=== PATIENT | male | born 1935 | race Caucasian/White ===

== ENCOUNTER 2017-05-04 10:31 | Observation (INO) | payer MEDICARE, BC ==
[~2017-05-04] VITALS: Ht 172.7 cm; Wt 79.7 kg
[~2017-05-04 10:31] MED LIST: ALEVE 220MG220 MG PO; ANDROGEL1% TP; ASPIRIN 32325 MG/TAB PO; BIO-TN500 MCG PO; CENTRUM SILVER1 TA1 PO; CEPHALEXIN500 M1 PO; COZAAR 25MG25 MG/TAB PO; DARVOCET N 101 UDTAB PO; FERROUS SULFATE65 MG PO; FISH OIL1 IU PO; FISH OIL1000 MG PO; FOLIC ACID 40400 MCG PO; HCTZ 25MG TAB25 MG PO; HEADACHE RELIE1 EACH PO; HYDROCHLOR50 MG PO; IRON325 M1 PO; LASIX 20MG TABL20 MG PO; LASIX 40MG TABL40 MG PO; LEADER EYE ITCH5 ML OP; LIDODERM 5% PATC1 EA TP; LIPITOR 10MG10 MG PO; LIQUID MAGNESI400 MG PO; LISINOPRIL10 MG PO; LOPRESSOR 550 MG/TAB PO; MAG-OX 400400 MG/TAB PO; METOPROLOL SUCC50 M1 PO; MULTAQ400 MG PO; MULTIPLE VITAMI1 CAP PO; NEXIUM 40MG40 MG PO; NORVASC 5MG5 MG/TAB PO; NORVASC2.5 MG PO; OSTEO-BI-FLEX 21 TAB PO; PRINIVIL10 MG PO; PRINIVIL20 MG PO; STRESS FORMULA PO; SUPER B COMPLEX1 TA2 PO; SYSTANE 0.4%-0.1 SOL OP; TAMBOCOR 1100 MG/TAB PO; ULTRAM 50MG TAB50 MG PO; VITAMIN C BUFF500 MG PO; VITAMIN D31000 IU PO; VITAMIN D5000 IU PO; XARELTO10 MG PO; ZOFRAN 4MG T4 MG/TAB PO
[2017-05-04] MEDS ORDERED: NORVASC2.5 MG PO (13:09)
[2017-05-04 13:12] VITALS: BP 135/60; PULSE 69; TEMP 97.6
[2017-05-04] MEDS ORDERED: LOPRESSOR 550 MG/TAB PO (13:37)
[2017-05-04 14:43] LABS: ADJUSTED CALCIUM 8.9 mg/dL (8.4-10.2); ALBUMIN 4.1 gm/dL (3.5-5.0); BILIRUBIN,TOTAL 1.1 mg/dL (0.0-1.0); C-REACTIVE PROTEIN 2.5 mg/dL (0.0-0.9); CREATININE, serum 1.19 mg/dL (0.66-1.25); POTASSIUM 3.9 mmol/L (3.4-5.0); TOTAL PROTEIN 7.4 gm/dL (6.4-8.2)
[2017-05-04 14:52] LABS: TROPONIN-I 0.023 ng/mL (0.000-0.034)
[2017-05-04 15:48] LABS: MAGNESIUM 1.7 mg/dL (1.6-2.3)
[2017-05-04 15:58] VITALS: BP 165/76; PULSE 83; TEMP 97.8
[2017-05-04 17:54] LABS: PH 6 (5-8); SQUAMOUS EPITHELIAL None Seen /hpf; URINE APPEARANCE Clear; URINE BACTERIA None Seen /hpf; URINE BILIRUBIN Negative (NEGATIVE); URINE BLOOD Negative (NEGATIVE); URINE COLOR Straw; URINE GLUCOSE Negative (NEGATIVE); URINE KETONE Negative (NEGATIVE); URINE RBC 0-2 /hpf; URINE UROBILINOGEN Negative (NEGATIVE); URINE WBC 0-2 /hpf
[2017-05-04 18:50] LABS: BASO # 0.1 (0.0-0.2); BASO % 0.6 % (0.0-2.0); EOS # 0.1 (0.0-0.7); EOS % 0.7 % (0-4.0); GRAN # 8.6 (1.4-6.5); GRAN % 80.3 % (42.2-75.2); HEMATOCRIT 41.4 % (42.0-52.0); HEMOGLOBIN 14.5 g/dl (13.5-18.0); LYMPH # 1.1 (1.2-3.4); MEAN CELL VOLUME 98 fl (80.0-100.0); MEAN CORPUSCULAR HEMOGLOBIN 34 pg (27.0-31.0); MEAN CORPUSCULAR HGB CONC 35 g/dl (33.0-37.0); MEAN PLATELET VOLUME 11.4 fl (7.4-10.4); MONO # 0.9 (0.1-0.6); RED BLOOD COUNT 4.21 M/mm3 (4.20-5.60); REDCELL DISTRIBUTION WIDTH-CV 12.9 % (11.5-14.5); WHITE BLOOD COUNT 10.7 K/mm3 (4.8-10.8)
[2017-05-04 18:58] LABS: PLATELET COUNT 216 K/mm3 (130-400)
[2017-05-04 20:16] VITALS: BP 137/69; PULSE 64; TEMP 97.6
[2017-05-04 23:28] VITALS: BP 165/70; PULSE 60; TEMP 98.3
[2017-05-05 03:24] VITALS: BP 176/87; PULSE 60; TEMP 98.2
[2017-05-05 07:15] LABS: BASO # 0.1 (0.0-0.2); BASO % 0.7 % (0.0-2.0); EOS # 0.1 (0.0-0.7); EOS % 1.2 % (0-4.0); GRAN # 5.4 (1.4-6.5); HEMATOCRIT 37.3 % (42.0-52.0); HEMOGLOBIN 12.8 g/dl (13.5-18.0); LYMPH # 0.8 (1.2-3.4); LYMPH % 11.4 % (20.0-51.0); MEAN CELL VOLUME 100 fl (80.0-100.0); MEAN CORPUSCULAR HEMOGLOBIN 34 pg (27.0-31.0); MEAN CORPUSCULAR HGB CONC 34 g/dl (33.0-37.0); MEAN PLATELET VOLUME 10.6 fl (7.4-10.4); MONO # 0.8 (0.1-0.6); RED BLOOD COUNT 3.73 M/mm3 (4.20-5.60); WHITE BLOOD COUNT 7.2 K/mm3 (4.8-10.8)
[2017-05-05 07:25] VITALS: BP 147/79; PULSE 119; TEMP 97.6
[2017-05-05 07:58] LABS: PLATELET COUNT 37 K/mm3 (130-400)
[2017-05-05 09:02] LABS: BASO # 0.1 (0.0-0.2); BASO % 0.9 % (0.0-2.0); EOS # 0.1 (0.0-0.7); EOS % 1.2 % (0-4.0); GRAN % 73.6 % (42.2-75.2); LYMPH # 0.9 (1.2-3.4); LYMPH % 12.8 % (20.0-51.0); MEAN CELL VOLUME 98 fl (80.0-100.0); MEAN CORPUSCULAR HEMOGLOBIN 34 pg (27.0-31.0); MEAN CORPUSCULAR HGB CONC 35 g/dl (33.0-37.0); MEAN PLATELET VOLUME 10.8 fl (7.4-10.4); MONO # 0.7 (0.1-0.6); MONO % 10.9 % (1.7-9.3); RED BLOOD COUNT 3.79 M/mm3 (4.20-5.60); WHITE BLOOD COUNT 6.8 K/mm3 (4.8-10.8)
[2017-05-05 09:27] LABS: PLATELET COUNT 41 K/mm3 (130-400)
[2017-05-05 11:51] LABS: INR 1.2 (0.8-3.0); PROTHROMBIN TIME 13.8 SECONDS (9.7-12.8)
[2017-05-05 12:51] VITALS: BP 148/73; PULSE 61; TEMP 97.9
[2017-05-05 15:15] VITALS: BP 136/74; PULSE 61; TEMP 98.6
[2017-05-05] MEDS ORDERED: NAMENDA5 MG PO (15:19)
[2017-05-05 20:01] VITALS: BP 137/71; PULSE 64; TEMP 98.7
[2017-05-05 22:15] VITALS: BP 164/91; PULSE 78; TEMP 98.4
[2017-05-06 02:08] VITALS: BP 145/68; PULSE 60; TEMP 98.5
[2017-05-06 07:12] VITALS: BP 137/77; PULSE 56; TEMP 97.3
[2017-05-06 07:13] LABS: BASO % 0.4 % (0.0-2.0); EOS # 0.1 (0.0-0.7); GRAN # 4.6 (1.4-6.5); GRAN % 65.7 % (42.2-75.2); HEMATOCRIT 40.2 % (42.0-52.0); HEMOGLOBIN 13.7 g/dl (13.5-18.0); LYMPH # 1.3 (1.2-3.4); LYMPH % 19.1 % (20.0-51.0); MEAN CELL VOLUME 99 fl (80.0-100.0); MEAN CORPUSCULAR HEMOGLOBIN 34 pg (27.0-31.0); MEAN CORPUSCULAR HGB CONC 34 g/dl (33.0-37.0); MEAN PLATELET VOLUME 10.9 fl (7.4-10.4); MONO # 0.9 (0.1-0.6); MONO % 12.2 % (1.7-9.3); PLATELET COUNT 56 K/mm3 (130-400); RED BLOOD COUNT 4.05 M/mm3 (4.20-5.60); REDCELL DISTRIBUTION WIDTH-CV 12.8 % (11.5-14.5)
[2017-05-06 10:55] VITALS: BP 144/74; PULSE 64; TEMP 98.2
[2017-05-06 12:59] VITALS: BP 120/73; PULSE 83; TEMP 97.5
[2017-05-06 14:17] VITALS: BP 120/73; PULSE 83; TEMP 97.5
== END 2017-05-06 14:51 ==
LOC: MEDICAL 10:31
PROVIDERS: Family Medicine; Internal Medicine Interventional Cardiology; Physician Assistant
DX: R41.82 Altered mental status, unspecified (principal); I25.10 Atherosclerotic heart disease of native coronary artery without angina pectoris; K21.9 Gastro-esophageal reflux disease without esophagitis; G47.33 Obstructive sleep apnea (adult) (pediatric); E78.5 Hyperlipidemia, unspecified; I48.0 Paroxysmal atrial fibrillation; G30.9 Alzheimer's disease, unspecified; F02.80 Dementia in other diseases classified elsewhere, unspecified severity, without behavioral disturbance, psychotic disturbance, mood disturbance, and anxiety; E87.1 Hypo-osmolality and hyponatremia; I13.0 Hypertensive heart and chronic kidney disease with heart failure and stage 1 through stage 4 chronic kidney disease, or unspecified chronic kidney disease; N18.9 Chronic kidney disease, unspecified; I50.30 Unspecified diastolic (congestive) heart failure; I47.1 Supraventricular tachycardia; R60.9 Edema, unspecified; Z95.0 Presence of cardiac pacemaker
CPT/HCPCS: G0378; G0379; G8978-GP; G8979-GP; G8987-GO; G8988-GO; G9168-GN; G9169-GN; G9170-GN

== ENCOUNTER 2017-05-28 03:26 | Observation (INO) | payer MEDICARE, BC ==
[~2017-05-28] VITALS: Wt 113.3 kg
[~2017-05-28 03:26] MED LIST changes: +NAMENDA5 MG PO
[2017-05-28] MEDS ORDERED: TAMBOCOR 1100 MG/TAB PO (03:53)
[2017-05-28] MEDS ORDERED: NORVASC2.5 MG PO (03:54)
[2017-05-28] MEDS ORDERED: CARDIZEM120 MG PO (03:54)
[2017-05-28] MEDS ORDERED: COZAAR 25MG25 MG/TAB PO (03:55)
[2017-05-28] MEDS ORDERED: LASIX 20MG TABL20 MG PO (03:55)
[2017-05-28] MEDS ORDERED: IMODIUM AD1 MG/5 ML PO (03:57)
[2017-05-28] MEDS ORDERED: PHENERGAN25 MG RC (03:57)
[2017-05-28 03:58] LABS: BASO # 0.1 (0.0-0.2); BASO % 0.7 % (0.0-2.0); EOS # 0.1 (0.0-0.7); EOS % 0.5 % (0-4.0); GRAN # 8.1 (1.4-6.5); GRAN % 77.3 % (42.2-75.2); HEMATOCRIT 37.1 % (42.0-52.0); HEMOGLOBIN 12.9 g/dl (13.5-18.0); INR 1.2 (0.8-3.0); LYMPH # 0.8 (1.2-3.4); LYMPH % 7.5 % (20.0-51.0); MEAN CELL VOLUME 97 fl (80.0-100.0); MEAN CORPUSCULAR HEMOGLOBIN 34 pg (27.0-31.0); MEAN CORPUSCULAR HGB CONC 35 g/dl (33.0-37.0); MEAN PLATELET VOLUME 10.7 fl (7.4-10.4); MONO # 1.4 (0.1-0.6); MONO % 13.4 % (1.7-9.3); PLATELET COUNT 61 K/mm3 (130-400); PROTHROMBIN TIME 13.3 SECONDS (9.7-12.8); RED BLOOD COUNT 3.84 M/mm3 (4.20-5.60); REDCELL DISTRIBUTION WIDTH-CV 12.6 % (11.5-14.5); WHITE BLOOD COUNT 10.5 K/mm3 (4.8-10.8)
[2017-05-28] MEDS ORDERED: ULTRAM 50MG TAB50 MG PO (03:58)
[2017-05-28] MEDS ORDERED: NAMENDA 10MG TA10 MG PO (03:58)
[2017-05-28] MEDS ORDERED: SYSTANE 0.4%-0.1 SOL OP (03:59)
[2017-05-28] MEDS ORDERED: B COMPLEX & B121 TAB (03:59)
[2017-05-28 04:07] LABS: ADJUSTED CALCIUM 9.3 mg/dL (8.4-10.2); ALBUMIN 3.7 gm/dL (3.5-5.0); BILIRUBIN,TOTAL 0.8 mg/dL (0.0-1.0); CALCIUM 9.1 mg/dL (8.4-10.2); CREATININE, serum 1.17 mg/dL (0.66-1.25); POTASSIUM 3.6 mmol/L (3.4-5.0); TOTAL PROTEIN 6.8 gm/dL (6.4-8.2)
[2017-05-28 04:19] LABS: TROPONIN-I 0.028 ng/mL (0.000-0.034)
[2017-05-28 09:43] VITALS: BP 141/77; PULSE 94; TEMP 99.3
[2017-05-28 10:16] VITALS: BP 124/85; PULSE 101; TEMP 99.3
[2017-05-28 13:18] VITALS: BP 112/68; PULSE 63; TEMP 98
[2017-05-28 17:56] VITALS: BP 102/66; BP 1027/66; PULSE 87
[2017-05-28 21:44] VITALS: BP 118/73; PULSE 72; TEMP 98.9
[2017-05-29] VITALS (7 sets, daily range): BP systolic 112–156; BP diastolic 62–94; PULSE 74–106; TEMP 98–99
[2017-05-29 08:00] LABS: CALCIUM 8.7 mg/dL (8.4-10.2); CREATININE, serum 1.03 mg/dL (0.66-1.25); POTASSIUM 3.3 mmol/L (3.4-5.0)
[2017-05-29 13:23] LABS: TROPONIN-I 0.023 ng/mL (0.000-0.034)
[2017-05-30] VITALS (7 sets, daily range): BP systolic 117–163; BP diastolic 53–79; PULSE 67–109; TEMP 98–98.7
[2017-05-30 08:13] LABS: CALCIUM 9.2 mg/dL (8.4-10.2); CREATININE, serum 1.08 mg/dL (0.66-1.25)
[2017-05-30 08:24] LABS: TROPONIN-I 0.024 ng/mL (0.000-0.034)
[2017-05-31 01:44] VITALS: BP 134/74; PULSE 64; TEMP 97.5
[2017-05-31 05:53] VITALS: BP 138/69; PULSE 66; TEMP 97.8
[2017-05-31 07:37] LABS: CALCIUM 8.9 mg/dL (8.4-10.2); CREATININE, serum 1.1 mg/dL (0.66-1.25); POTASSIUM 3.2 mmol/L (3.4-5.0)
[2017-05-31 07:41] LABS: TROPONIN-I 0.016 ng/mL (0.000-0.034)
[2017-05-31 10:35] VITALS: BP 119/69; PULSE 73; TEMP 99.4
[2017-05-31 14:37] VITALS: BP 111/43; PULSE 60; TEMP 97.9
[2017-05-31 16:20] VITALS: BP 111/43; PULSE 60; TEMP 97.9
== END 2017-05-31 16:40 ==
LOC: COL.ER 03:26 → SURG 05:24
PROVIDERS: Emergency Medicine; Internal Medicine Interventional Cardiology
DX: I48.91 Unspecified atrial fibrillation (principal); Z79.01 Long term (current) use of anticoagulants; Z96.653 Presence of artificial knee joint, bilateral; Z95.0 Presence of cardiac pacemaker; Z87.891 Personal history of nicotine dependence; R00.0 Tachycardia, unspecified; R07.9 Chest pain, unspecified; R60.0 Localized edema; F03.90 Unspecified dementia, unspecified severity, without behavioral disturbance, psychotic disturbance, mood disturbance, and anxiety
CPT/HCPCS: G0378; G0463; J1940; J7030

== ENCOUNTER → 2017-11-02 | Outpatient (REF) ==
[~2017-11-02] MED LIST changes: +B COMPLEX & B121 TAB; +CARDIZEM120 MG PO; +IMODIUM AD1 MG/5 ML PO; +NAMENDA 10MG TA10 MG PO; +PHENERGAN25 MG RC
[2017-11-02 09:59] LABS: CALCIUM 9.2 mg/dL (8.4-10.2); CREATININE, serum 1.21 mg/dL (0.66-1.25); POTASSIUM 4.2 mmol/L (3.4-5.0)
== END ==
LOC: ZLAB.STJ 09:23
PROVIDERS: Internal Medicine
DX: I10 Essential (primary) hypertension (principal)

== ENCOUNTER → 2018-02-15 | Outpatient (REF) ==
[2018-02-15 10:44] LABS: CALCIUM 8.9 mg/dL (8.4-10.2); CREATININE, serum 1.57 mg/dL (0.66-1.25); POTASSIUM 4.7 mmol/L (3.4-5.0)
[2018-02-15 11:11] LABS: TSH w REFLEX 2.04 uIU/mL (0.465-4.680)
== END ==
LOC: ZLAB.STJ 08:30
PROVIDERS: Internal Medicine
DX: I48.2 Chronic atrial fibrillation (principal); I10 Essential (primary) hypertension; E03.9 Hypothyroidism, unspecified

== ENCOUNTER → 2018-03-04 | Outpatient (REF) ==
[2018-03-04 14:05] LABS: BASO # 0.1 (0.0-0.2); BASO % 0.9 % (0.0-2.0); EOS # 0.1 (0.0-0.7); EOS % 1.1 % (0-4.0); GRAN # 5.9 (1.4-6.5); GRAN % 74.3 % (42.2-75.2); HEMOGLOBIN 13.1 g/dl (13.5-18.0); LYMPH # 0.9 (1.2-3.4); LYMPH % 10.7 % (20.0-51.0); MEAN CELL VOLUME 97 fl (80.0-100.0); MEAN CORPUSCULAR HEMOGLOBIN 32 pg (27.0-31.0); MEAN CORPUSCULAR HGB CONC 34 g/dl (33.0-37.0); MEAN PLATELET VOLUME 10.3 fl (7.4-10.4); MONO % 12.6 % (1.7-9.3); PLATELET COUNT 92 K/mm3 (130-400); RED BLOOD COUNT 4.04 M/mm3 (4.20-5.60); REDCELL DISTRIBUTION WIDTH-CV 13.5 % (11.5-14.5)
[2018-03-04 14:16] LABS: CALCIUM 8.6 mg/dL (8.4-10.2); CREATININE, serum 1.79 mg/dL (0.66-1.25); POTASSIUM 4.4 mmol/L (3.4-5.0)
== END ==
LOC: ZLAB.STJ 13:56
PROVIDERS: Internal Medicine
DX: I48.2 Chronic atrial fibrillation (principal)

== ENCOUNTER → 2018-04-06 | Outpatient (CLI) | payer MEDICARE, BC ==
[2018-04-06 14:22] LABS: CALCIUM 9.1 mg/dL (8.4-10.2); CREATININE, serum 1.59 mg/dL (0.66-1.25); POTASSIUM 4.6 mmol/L (3.4-5.0)
== END ==
LOC: ZCOL.LAB 13:51
PROVIDERS: Internal Medicine
DX: I48.2 Chronic atrial fibrillation (principal)

== ENCOUNTER → 2018-08-17 | Outpatient (CLI) | payer MEDICARE, BC ==
[2018-08-17 10:51] LABS: BASO # 0.1 (0.0-0.2); BASO % 1.1 % (0.0-2.0); EOS # 0.1 (0.0-0.7); EOS % 1.7 % (0-4.0); GRAN # 5.6 (1.4-6.5); GRAN % 73.9 % (42.2-75.2); HEMATOCRIT 41.3 % (42.0-52.0); HEMOGLOBIN 13.5 g/dl (13.5-18.0); LYMPH % 12.9 % (20.0-51.0); MEAN CELL VOLUME 95 fl (80.0-100.0); MEAN CORPUSCULAR HEMOGLOBIN 31 pg (27.0-31.0); MEAN CORPUSCULAR HGB CONC 33 g/dl (33.0-37.0); MEAN PLATELET VOLUME 11.2 fl (7.4-10.4); MONO # 0.7 (0.1-0.6); MONO % 9.7 % (1.7-9.3); PLATELET COUNT 90 K/mm3 (130-400); RED BLOOD COUNT 4.37 M/mm3 (4.20-5.60); REDCELL DISTRIBUTION WIDTH-CV 13.6 % (11.5-14.5)
[2018-08-17 11:10] LABS: ALBUMIN 3.8 gm/dL (3.5-5.0); BILIRUBIN,TOTAL 0.4 mg/dL (0.0-1.0); CALCIUM 9.1 mg/dL (8.4-10.2); CREATININE, serum 1.59 mg/dL (0.66-1.25); POTASSIUM 4.1 mmol/L (3.4-5.0); TOTAL PROTEIN 7.6 gm/dL (6.4-8.2)
[2018-08-17 11:40] LABS: THYROID STIMULATING HORMONE 1.8 uIU/mL (0.465-4.680)
== END ==
LOC: ZLAB.STJ 10:07
PROVIDERS: Internal Medicine
DX: D63.8 Anemia in other chronic diseases classified elsewhere (principal); E11.8 Type 2 diabetes mellitus with unspecified complications; E06.2 Chronic thyroiditis with transient thyrotoxicosis; I10 Essential (primary) hypertension

== ENCOUNTER → 2018-10-20 | Outpatient (CLI) | payer MEDICARE, BC | LOC: ZLAB.STJ 13:51 | DX: I50.9 Heart failure, unspecified (principal); I48.2 Chronic atrial fibrillation ==

== ENCOUNTER → 2018-10-20 | Outpatient (REF) ==
[2018-10-20 14:31] LABS: CREATININE, serum 2.56 mg/dL (0.66-1.25); POTASSIUM 3.2 mmol/L (3.4-5.0)
== END ==
LOC: ZLAB.STJ 14:03
PROVIDERS: Internal Medicine
DX: I50.9 Heart failure, unspecified (principal); I48.2 Chronic atrial fibrillation

== ENCOUNTER → 2018-10-28 | Outpatient (CLI) | payer MEDICARE, BC ==
[2018-10-28 14:14] LABS: CALCIUM 8.8 mg/dL (8.4-10.2); CREATININE, serum 1.64 mg/dL (0.66-1.25); POTASSIUM 4.1 mmol/L (3.4-5.0)
== END ==
LOC: ZLAB.STJ 13:58
PROVIDERS: Internal Medicine
DX: I50.20 Unspecified systolic (congestive) heart failure (principal)

== ENCOUNTER → 2018-11-17 | Outpatient (CLI) | payer MEDICARE, BC ==
[2018-11-17 17:09] LABS: CALCIUM 8.8 mg/dL (8.4-10.2); CREATININE, serum 1.36 mg/dL (0.66-1.25); POTASSIUM 4.6 mmol/L (3.4-5.0)
== END ==
LOC: ZCOL.LAB 16:58
PROVIDERS: Internal Medicine
DX: I50.9 Heart failure, unspecified (principal)

== ENCOUNTER → 2018-12-06 | Outpatient (CLI) | payer MEDICARE, BC | LOC: MHCPAIN 14:29 | DX: G89.29 Other chronic pain (principal); M47.817 Spondylosis without myelopathy or radiculopathy, lumbosacral region; M54.16 Radiculopathy, lumbar region; M53.3 Sacrococcygeal disorders, not elsewhere classified; M48.061 Spinal stenosis, lumbar region without neurogenic claudication | CPT/HCPCS: G0463 ==

== ENCOUNTER → 2018-12-14 | Outpatient (CLI) | payer MEDICARE, BC ==
[2018-12-14 11:35] LABS: CALCIUM 8.4 mg/dL (8.4-10.2); CREATININE, serum 1.39 mg/dL (0.66-1.25); POTASSIUM 3.9 mmol/L (3.4-5.0)
== END ==
LOC: ZLAB.STJ 10:19
PROVIDERS: Internal Medicine
DX: I50.9 Heart failure, unspecified (principal)

== ENCOUNTER → 2019-04-12 | Outpatient (CLI) | payer MEDICARE, BC ==
[~2019-04-12] MED LIST changes: +ALBUTEROL IH; +ASPIRIN E.C. 8181 MG PO; +CARDIZEM CD 24240 MG PO; -CARDIZEM120 MG PO; +CLARITIN 1010 MG/TAB PO; +ELIQUIS 5MG PO; +EXELON3 MG PO; +FLOMAX 0.40.4 MG/CAP PO; +HYDROCORTISONE30 G3 TP; +LACRI LUBE1 OIN OP; +LOPRESSOR 225 MG/TAB PO; +NITROSTAT0.4 MG/TAB SL; +PRIL40 PO; +ROBITUSSIN COUGH; +SALONPAS; +SENNA-LAX8.6 MG PO
[2019-04-12 12:09] LABS: CALCIUM 8.8 mg/dL (8.4-10.2); CREATININE, serum 1.82 (0.66-1.25); POTASSIUM 3.1 mmol/L (3.4-5.0)
== END ==
LOC: ZLAB.STJ 10:59
PROVIDERS: Internal Medicine
DX: I10 Essential (primary) hypertension (principal)

== ENCOUNTER 2019-04-13 12:48 | Inpatient (IN) | payer MEDICARE, BC ==
[~2019-04-13] VITALS: Ht 172.7 cm; Wt 96.3 kg
[~2019-04-13 12:48] MED LIST changes: -ALBUTEROL IH; -ALDACTONE 25MG25 M1 PO; -ASPIRIN E.C. 8181 MG PO; -BUMEX2 MG PO; -CLARITIN 1010 MG/TAB PO; -ELIQUIS 5MG PO; -EXELON3 MG PO; -FLOMAX 0.40.4 MG/CAP PO; -HYDROCORTISONE30 G3 TP; -K-DUR20 MEQ PO; -LACRI LUBE1 OIN OP; -LOPRESSOR 225 MG/TAB PO; -NITROSTAT0.4 MG/TAB SL; -PRIL40 PO; -ROBITUSSIN COUGH; -SALONPAS; -SENNA-LAX8.6 MG PO
[2019-04-13 13:49] LABS: COLLECTION METHOD CLEAN CATCH
[2019-04-13 13:54] LABS: BASO # 0.1 (0.0-0.2); BASO % 0.4 % (0.0-2.0); EOS % 0.2 % (0-4.0); GRAN # 8.9 (1.4-6.5); GRAN % 79.4 % (42.2-75.2); LYMPH # 0.8 (1.2-3.4); LYMPH % 7.1 % (20.0-51.0); MEAN CELL VOLUME 87 fl (80.0-100.0); MEAN CORPUSCULAR HGB CONC 32 g/dl (33.0-37.0); MEAN PLATELET VOLUME 10.4 fl (7.4-10.4); MONO # 1.4 (0.1-0.6); MONO % 12.2 % (1.7-9.3); PLATELET COUNT 235 K/mm3 (130-400); RED BLOOD COUNT 3.57 M/mm3 (4.20-5.60); REDCELL DISTRIBUTION WIDTH-CV 16.7 % (11.5-14.5)
[2019-04-13 13:55] LABS: HEMOGLOBIN 9.8 g/dl (13.5-18.0); MEAN CORPUSCULAR HEMOGLOBIN 27 pg (27.0-31.0)
[2019-04-13 14:05] LABS: ALBUMIN 3.3 gm/dL (3.5-5.0); BILIRUBIN,TOTAL 0.9 mg/dL (0.0-1.0); CALCIUM 8.7 mg/dL (8.4-10.2); CREATININE, serum 2.57 (0.66-1.25); TOTAL PROTEIN 6.8 gm/dL (6.4-8.2)
[2019-04-13 14:10] LABS: PH 5 (5-8); SQUAMOUS EPITHELIAL None Seen /hpf; URINE APPEARANCE Turbid; URINE BACTERIA Moderate /hpf; URINE BILIRUBIN Negative (NEGATIVE); URINE BLOOD 1+ (NEGATIVE); URINE COLOR Amber; URINE GLUCOSE Negative (NEGATIVE); URINE KETONE Negative (NEGATIVE); URINE LEUKOCYTE ESTERASE 3+ (NEGATIVE); URINE NITRATE Negative (NEGATIVE); URINE PROTEIN(semi-quant) 2+ (NEGATIVE); URINE UROBILINOGEN Negative (NEGATIVE)
[2019-04-13 14:24] LABS: POTASSIUM 2.9 mmol/L (3.4-5.0)
[2019-04-13 17:17] VITALS: BP 112/57; PULSE 60; TEMP 98.6
[2019-04-13 17:45] LABS: POTASSIUM 3.2 mmol/L (3.4-5.0)
[2019-04-13 18:00] LABS: TROPONIN-I 0.025 ng/mL (0.000-0.035)
--- NOTE | 2019-04-13 18:02 | NUR ---
Pt alert to person and place. Pt able to swallow water and mash potato without difficulty. Pt ordered supper and daughter at bedside. Pt up to unit from ER. Pt uses urinal and wheelchair. Pt has BLE edema that is 3+. Pt IV intact and no redness or infiltration noted RFA. Pt denies SOB or pain. Pt has oxygen via nasal cannula at 2L. Pt has call light in reach and denies needs at this time.
--- NOTE | 2019-04-13 19:28 | NUR ---
posting clerk called and left message for med list to be sent from via [employer] for med reconciliation to be completed. Pt has family at bedside. Pt did cough some with supper and experienced some reflux after meal. Pt cardio consult called and order for bumex drip order given. Pt has call light in reach and fall precautions in place.
[2019-04-13 20:45] VITALS: BP 124/54; PULSE 65; TEMP 99.2
--- NOTE | 2019-04-13 20:51 | NUR ---
PT IN BED WITH HOB ELEVATED TO 45 DEGREE ANGLE, WITH OXYGEN ON. PT HAS AUDIBLE EXP WHEEZING, LS IN ALL LISA INSP WHEEZING. PT STATES THAT HE FEELS A LITTLE SOB AND RESP LABORED AND 35. PT HAS A LITTLE PAIN FROM COUGH IN DIAPHARM THAT IS RATED AT A 2 AND TOLERABLE WITHOUT MEDICATION. RT CALL FOR BREATHING TX AND CPAP. CALL LIGHT IN REACH AND BED ALARM ON.
--- NOTE | 2019-04-13 21:05 | NUR ---
BRANDON HARRISON CALLED IN REFERENCE TO PT'S RESP ARE LABORED WITH EXP WHEEZING THAT IS AUDIBLE. PT ADVISED THAT HE IS SOB. RECEIVED ORDERS TO REPLACE POTASSIUM. ALSO, BRANDON PUT IN ORDERS. CALLED RT TO COME AND DO ABG ON PT ORDERED.
[2019-04-13 21:24] LABS: ARTERIAL BLD GAS O2 SATURATION 94.5 % (92-100); ARTERIAL BLD GAS TCO2 CT 25.3; ARTERIAL BLOOD GAS BASE EXCESS 0.6 (-2-2); ARTERIAL BLOOD GAS HCO3 24.3 meq/L (22-26); ARTERIAL BLOOD GAS PCO2 35.3 mmHg (35-45); ARTERIAL BLOOD GAS PO2 74.2 mmHg (80-100); ARTERIAL BLOOD GAS pH 7.46 (7.35-7.45)
[2019-04-14] VITALS (7 sets, daily range): BP systolic 129–167; BP diastolic 52–73; PULSE 59–86; TEMP 98.2–100.5
[2019-04-14 00:06] LABS: ARTERIAL BLD GAS O2 SATURATION 96.4 % (92-100); ARTERIAL BLD GAS TCO2 CT 24.6; ARTERIAL BLOOD GAS BASE EXCESS 0.6 (-2-2); ARTERIAL BLOOD GAS HCO3 23.6 meq/L (22-26); ARTERIAL BLOOD GAS PCO2 32.2 mmHg (35-45); ARTERIAL BLOOD GAS PO2 91.6 mmHg (80-100); ARTERIAL BLOOD GAS pH 7.48 (7.35-7.45)
--- NOTE | 2019-04-14 01:19 | NUR ---
PT RESTING/SLEEPING IN BED WITH BIPAP ON. PT EARLIER DENIED ANY PAIN OR DISCOMFORT AND HAS NO S/S OF PAIN OR DISCOMFORT NOTED. PT HAS BED ALARM ON AND CALL LIGHT WITHIN REACH.
--- NOTE | 2019-04-14 03:34 | NUR ---
CALLED VIA [facility] AND DID NOT GET OPTION TO SPEAK TO ANYONE OR TO LEAVE A MESSAGE. RECORDING SAID TO CALL BACK DURING NORMAL BUSINESS HOURS.
--- NOTE | 2019-04-14 06:14 | NUR ---
PT WAS TAKEN OFF BIPAP BY RT AND PLACED BACK ON NC AT 2L. PT WAS ASSISTED USING URINAL AND CHANGED INCONTINENT BRIEF OF URINE, YESSENIA CARE DONE. PT'S RESP ARE EVEN AND UNLABORED WITH NO EXP AUDIBLE WHEEZING HEARD. PT DENIES PAIN OR DISCOMFORT AND PT DID SLEEP/RESTED FOR A FEW HOURS. PT HAS NO FURTHER NEEDS, BED ALARM ON, AND CALL LIGHT WITHIN REACH.
[2019-04-14 06:23] LABS: BASO # 0.1 (0.0-0.2); BASO % 0.4 % (0.0-2.0); EOS # 0.1 (0.0-0.7); EOS % 0.5 % (0-4.0); GRAN # 8.8 (1.4-6.5); GRAN % 79.1 % (42.2-75.2); LYMPH # 0.7 (1.2-3.4); LYMPH % 5.8 % (20.0-51.0); MEAN CELL VOLUME 86 fl (80.0-100.0); MEAN CORPUSCULAR HGB CONC 31 g/dl (33.0-37.0); MEAN PLATELET VOLUME 10.5 fl (7.4-10.4); MONO # 1.5 (0.1-0.6); MONO % 13.4 % (1.7-9.3); RED BLOOD COUNT 3.47 M/mm3 (4.20-5.60); REDCELL DISTRIBUTION WIDTH-CV 16.9 % (11.5-14.5)
[2019-04-14 06:27] LABS: HEMATOCRIT 29.8 % (42.0-52.0); HEMOGLOBIN 9.2 g/dl (13.5-18.0); MEAN CORPUSCULAR HEMOGLOBIN 27 pg (27.0-31.0)
[2019-04-14 06:28] LABS: PLATELET COUNT 132 K/mm3 (130-400)
[2019-04-14 06:34] LABS: CALCIUM 8.4 mg/dL (8.4-10.2); CREATININE, serum 2.16 (0.66-1.25); MAGNESIUM 1.9 mg/dL (1.6-2.3); POTASSIUM 3.3 mmol/L (3.4-5.0)
[2019-04-14 06:44] LABS: TROPONIN-I 0.02 ng/mL (0.000-0.035)
--- NOTE | 2019-04-14 09:30 | NUR ---
Assessment complete. Patient A&O, denies pain and discomfort. VS stable. 2L NC, no reported SOB. IV CDI, fluids infusing. SCD's bilateral legs. Nursing staff assisted with ordering breakfast and using urinal. No further needs expressed from patient. Call light within reach
--- NOTE | 2019-04-14 11:47 | NUR ---
PAtient back to room 315 by cart. Family at the bedside. Patient tolerated well. Call light within reach. Will continue to monitor
[2019-04-14] MEDS ORDERED: SENNA-LAX8.6 MG PO (12:50)
[2019-04-14] MEDS ORDERED: FLOMAX 0.40.4 MG/CAP PO (12:51)
[2019-04-14] MEDS ORDERED: NITROSTAT0.4 MG/TAB SL (12:52)
[2019-04-14] MEDS ORDERED: SALONPAS (12:52)
[2019-04-14] MEDS ORDERED: HYDROCORTISONE30 G3 TP (12:54)
[2019-04-14] MEDS ORDERED: CLARITIN 1010 MG/TAB PO (12:54)
[2019-04-14] MEDS ORDERED: ROBITUSSIN COUGH (12:56)
[2019-04-14] MEDS ORDERED: ALBUTEROL IH (12:58)
[2019-04-14] MEDS ORDERED: EXELON3 MG PO (13:00)
[2019-04-14] MEDS ORDERED: ASPIRIN E.C. 8181 MG PO (13:00)
[2019-04-14] MEDS ORDERED: ELIQUIS 5MG PO (13:02)
[2019-04-14] MEDS ORDERED: LACRI LUBE1 OIN OP (13:02)
[2019-04-14] MEDS ORDERED: PRIL40 PO (13:02)
[2019-04-14 13:08] LABS: URIC ACID 11.3 mg/dL (3.5-8.5)
--- NOTE | 2019-04-14 14:01 | NUR ---
SW met with patient to discuss discharge planning. Patient currently lives at [facility]. Patient reports, as of right now, he plans to return there when he is discharged. Patient's PCP is Dr Matt and [facility] provides all medications. Patient reports he has been using a wheelchair or walker for mobility. Patient does have a DPOA-HC and a copy is on the chart. SW will continue to follow for discharge needs and fax updates to [facility].
[2019-04-14] MEDS ORDERED: LOPRESSOR 225 MG/TAB PO (14:50)
[2019-04-14 16:44] LABS: COLLECTION METHOD CLEAN CATCH
[2019-04-14 17:11] LABS: PH 6 (5-8); SQUAMOUS EPITHELIAL None Seen /hpf; URINE APPEARANCE Cloudy; URINE BACTERIA None Seen /hpf; URINE BILIRUBIN Negative (NEGATIVE); URINE BLOOD 1+ (NEGATIVE); URINE COLOR Yellow; URINE GLUCOSE Negative (NEGATIVE); URINE KETONE Negative (NEGATIVE); URINE LEUKOCYTE ESTERASE 3+ (NEGATIVE); URINE NITRATE Negative (NEGATIVE); URINE PROTEIN(semi-quant) Negative (NEGATIVE); URINE UROBILINOGEN Negative (NEGATIVE); URINE WBC >50 /hpf
--- NOTE | 2019-04-14 18:37 | NUR ---
Patient resting in bed. Family at the bedside. Has been A&O, IV CDI, bumex drip infusing. Patient requesting the urinal several times throughout the shift. Has also been incontinent of urine. VS stable. Has had a non productive cough. Nurse has been instructing patient to cough up sputum and spit out in napkin. Patient verbalized an understanding. Heels floated on pillow, SCD's bilateral legs. No further needs expressed from patient. Call light within reach. Bed alarm on.
--- NOTE | 2019-04-14 20:00 | NUR ---
RECEIVED ORDER FROM BRANDON HARRISON TO PLACE SHAH CATHETER FOR PT. PT HAS BEEN URINATING CONSTANTLY AND WOULD ASSIST WITH URINAL AND THEN 5 MINUTES AFTER LEAVING PT; PT WOULD HAVE TO GO AGAIN. PT REQUESTED SHAH OR ANYTHING THAT WOULD HELP HIM TO NOT HAVE TO USE THE URINAL, ALSO, FAMILY WAS FOR HIM GETTING A SHAH CATHETER. PT TOLERATED WELL THE SHAH CATHETER PLACEMENT, STERILE TECHNIQUE USED AND 10ML OF STERILE WATER PLACED IN BALLOON. PT HAD PALE YELLOW, CLOUDY URINE RETURN OVER 1000 ML OUT RIGHT AWAY. PT DENIES PAIN OR DISCOMFORT AND HAS NO NEEDS AT THIS TIME. PT WAS REPOSITIONED AND CHANGED BEFORE THE SHAH WAS PLACED. PT HAS BED ALARM ON AND CALL LIGHT WITHIN REACH.
[2019-04-14 20:25] LABS: URINE PROTEIN:CREAT RATIO 1.02 (0.00-0.14)
[2019-04-15 04:06] VITALS: BP 109/50; PULSE 60; TEMP 98.3
[2019-04-15 05:48] LABS: BASO # 0.1 (0.0-0.2); BASO % 0.7 % (0.0-2.0); EOS # 0.1 (0.0-0.7); EOS % 0.7 % (0-4.0); GRAN # 8.7 (1.4-6.5); GRAN % 76.5 % (42.2-75.2); HEMATOCRIT 30.1 % (42.0-52.0); HEMOGLOBIN 9.5 g/dl (13.5-18.0); LYMPH # 0.9 (1.2-3.4); LYMPH % 7.9 % (20.0-51.0); MEAN CELL VOLUME 87 fl (80.0-100.0); MEAN CORPUSCULAR HEMOGLOBIN 27 pg (27.0-31.0); MEAN CORPUSCULAR HGB CONC 32 g/dl (33.0-37.0); MEAN PLATELET VOLUME 11.1 fl (7.4-10.4); MONO # 1.5 (0.1-0.6); MONO % 13.2 % (1.7-9.3); PLATELET COUNT 229 K/mm3 (130-400); RED BLOOD COUNT 3.48 M/mm3 (4.20-5.60)
[2019-04-15 05:58] LABS: CALCIUM 8.8 mg/dL (8.4-10.2); CREATININE, serum 1.83 (0.66-1.25); MAGNESIUM 1.8 mg/dL (1.6-2.3); POTASSIUM 3.4 mmol/L (3.4-5.0)
[2019-04-15 07:08] VITALS: BP 122/52; PULSE 59; TEMP 99.2
--- NOTE | 2019-04-15 07:38 | NUR ---
PT SLEPT/RESTED SOME DURING THE NIGHT, BUT PT KEPT TAKING OFF BPAP AND NASAL CANULA. PT WAS DISORIENTATED. PT THOUGHT THAT HE WAS IN [place] WHEN ASKED WHERE HE WAS. PT PLEASANT AND COOPERATIVE. PT DENIED PAIN OR DISCOMFORT WHEN ASKED AND NO S/S OF PAIN OR DISCOMFORT. PT REPOSITIONED EVERY 2 HOURS. NO NEEDS AND CALL LIGHT WITHIN REACH.
--- NOTE | 2019-04-15 09:05 | NUR ---
Assessment complete.patient awake,alert and oriented to self.pt is confused r/t dementia.breathing even and unlabored,O2 at 2L/NC.productive cough noted.fine crackles auscultated to bilat lung bases.IV bumex infusing at this time.Rollins catheter in place and draining adequately.2+ pitting edema to BLE.patient denies any other needs.will continue to monitor.call light in reach
--- NOTE | 2019-04-15 10:23 | NUR ---
Patient was being given a bath by a nurse so I was not able to talk to him.
--- NOTE | 2019-04-15 11:29 | NUR ---
Patient was indisposed with a nurse.
[2019-04-15 12:22] VITALS: BP 106/55; PULSE 72; TEMP 98
[2019-04-15 16:02] VITALS: BP 111/57; PULSE 69; TEMP 99.4
--- NOTE | 2019-04-15 18:01 | NUR ---
pt resting in bed at this time with family at bedside.Bumex gtt infusing.oxygen at 3l/NC.patient has intermittent productive cough.continuing to monitor output.no other needs voiced.call light in reach
--- NOTE | 2019-04-15 19:35 | NUR ---
REPORT GIVEN TO DIONI CORNELL.
[2019-04-15 19:37] VITALS: BP 126/50; PULSE 83; TEMP 100
--- NOTE | 2019-04-15 21:30 | NUR ---
Completed assessment and medication administration; PT tolerated all cares well; PT assisted with BiPAP by RT; Rollins in place draining yellow clear urine dependent to collection bag; Bumex running 3ml/hr to RFA IV as ordered; SCDs in place; No further assessed or verbalized acute concerns at time of exit; PT alert and considerate, BS active x4, fine crackles to bilateral bases, IRHR monitored by TELE; PT assisted to comfortable position in bed with personal items and call light within reach; BiPAP in place at HS; Will continue to [facility]. CDA
[2019-04-15 23:49] VITALS: BP 111/75; PULSE 83; TEMP 99.8
--- NOTE | 2019-04-16 02:26 | NUR ---
PT resting well in bed with BiPAP in place; Bumex continues to run at 3ml/hr to RFA IV; Rollins in place draining clear yellow unkinked urine to dependent collection bag; No further assessed or verbalized concerns at time of rounds; PT assisted to comfortable position in bed with personal items and call light within reach; Will continue to monitor. CDA
[2019-04-16 04:10] VITALS: BP 117/64; PULSE 81; TEMP 98.6
[2019-04-16 06:36] LABS: MEAN CELL VOLUME 85 fl (80.0-100.0); MEAN CORPUSCULAR HGB CONC 31 g/dl (33.0-37.0); MEAN PLATELET VOLUME 11.7 fl (7.4-10.4); PLATELET COUNT 187 K/mm3 (130-400); RED BLOOD COUNT 3.74 M/mm3 (4.20-5.60); REDCELL DISTRIBUTION WIDTH-CV 16.7 % (11.5-14.5)
[2019-04-16 06:38] LABS: HEMATOCRIT 31.8 % (42.0-52.0); HEMOGLOBIN 9.9 g/dl (13.5-18.0); MEAN CORPUSCULAR HEMOGLOBIN 26 pg (27.0-31.0)
[2019-04-16 06:46] VITALS: BP 127/67; PULSE 82; TEMP 98.7
[2019-04-16 06:49] LABS: CALCIUM 8.9 mg/dL (8.4-10.2); CREATININE, serum 2.04 (0.66-1.25); MAGNESIUM 1.8 mg/dL (1.6-2.3); POTASSIUM 3.6 mmol/L (3.4-5.0)
[2019-04-16 06:57] LABS: BAND 2 % (0-10); BASOPHIL 2 % (0-2); EOSINOPHIL 2 % (0-4); LYMPHOCYTE 10 % (20.0-51.0); NEUTROPHILS 77 % (42.0-75.2); PLATELET ESTIMATE NORMAL (NORMAL)
[2019-04-16 06:58] LABS: ANISOCYTOSIS 1+
--- NOTE | 2019-04-16 07:05 | NUR ---
Patient resting in bed with eyes closed. Bi-pap is in place. Patient is resting on back with head of bed elevated. Personal items and call light is within reach.
--- NOTE | 2019-04-16 07:31 | NUR ---
Report given to DIONI Pantoja; No significant changes or concerns at time of shift change; Bumex running at 3ml/hr as order. CDA
[2019-04-16 17:11] VITALS: BP 125/52; PULSE 64; TEMP 98.3
--- NOTE | 2019-04-16 19:11 | NUR ---
Report given to evening shift. Patient sitting up in bed watching tv. Is awake and alert. Is joking around with staff. Denies having any pain. Personal items and call light are within reach.
--- NOTE | 2019-04-16 19:22 | NUR ---
Patient resting in bed, assessment completed, denies pain. Given water per request. Medications administered. Pt has productive cough, but does swallow the sputum. Pt alert, with intermittent confusion. No needs at thi stime.
[2019-04-16 19:33] VITALS: BP 109/44; PULSE 72; TEMP 98.6
[2019-04-17] VITALS (7 sets, daily range): BP systolic 114–130; BP diastolic 48–73; PULSE 61–82; TEMP 97.9–98.8
--- NOTE | 2019-04-17 05:06 | NUR ---
Pt slept on/off last night, VSS, denies pain. Missed urinal a few times, unable to document measurable voids. No needs at this time.
[2019-04-17 06:46] LABS: MEAN CELL VOLUME 84 fl (80.0-100.0); MEAN CORPUSCULAR HGB CONC 32 g/dl (33.0-37.0); MEAN PLATELET VOLUME 10.8 fl (7.4-10.4); PLATELET COUNT 212 K/mm3 (130-400); RED BLOOD COUNT 3.63 M/mm3 (4.20-5.60); REDCELL DISTRIBUTION WIDTH-CV 16.5 % (11.5-14.5)
[2019-04-17 06:48] LABS: HEMATOCRIT 30.5 % (42.0-52.0); HEMOGLOBIN 9.8 g/dl (13.5-18.0); MEAN CORPUSCULAR HEMOGLOBIN 27 pg (27.0-31.0)
[2019-04-17 06:58] LABS: CALCIUM 8.4 mg/dL (8.4-10.2); CREATININE, serum 2.12 (0.66-1.25); POTASSIUM 3.4 mmol/L (3.4-5.0)
[2019-04-17 07:14] LABS: EOSINOPHIL 1 % (0-4); LYMPHOCYTE 14 % (20.0-51.0); NEUTROPHILS 78 % (42.0-75.2); PLATELET ESTIMATE NORMAL (NORMAL)
--- NOTE | 2019-04-17 08:50 | NUR ---
Pt resting in bed napping, no C/O pain at this time, shift assessments complete, left Pt call light in reach, bed in lowest position, bed alarm on.
--- NOTE | 2019-04-17 18:24 | NUR ---
Pt rested during the day, no C/O pain, some increased confusion this afternoon, VS have remained stable.
--- NOTE | 2019-04-17 20:32 | NUR ---
Patient resting inbed, confused in conversation. States "I think i should get ready to go home now". This nurse explained that patient was in hospital and would be staying the night and that family is aware that patient is in the hospital. Patient agreeable to staying the night in the hospital. Assessment completed, patient denies pain, evening medications administered. NO further needs at [facility].
--- NOTE | 2019-04-18 01:45 | NUR ---
Pt confused and trying to get out of bed. This nurse reoriented patient to hospital and repositioned patient in bed. Bed alarm on, call light in reach.
[2019-04-18 04:32] VITALS: BP 122/60; PULSE 80; TEMP 98.2
[2019-04-18 06:19] LABS: MEAN CELL VOLUME 86 fl (80.0-100.0); MEAN CORPUSCULAR HGB CONC 32 g/dl (33.0-37.0); MEAN PLATELET VOLUME 11.2 fl (7.4-10.4); RED BLOOD COUNT 3.59 M/mm3 (4.20-5.60); REDCELL DISTRIBUTION WIDTH-CV 16.7 % (11.5-14.5)
[2019-04-18 06:31] LABS: CALCIUM 8.4 mg/dL (8.4-10.2); CREATININE, serum 2.09 (0.66-1.25); HEMATOCRIT 30.7 % (42.0-52.0); HEMOGLOBIN 9.7 g/dl (13.5-18.0); MAGNESIUM 1.8 mg/dL (1.6-2.3); MEAN CORPUSCULAR HEMOGLOBIN 27 pg (27.0-31.0); POTASSIUM 3.3 mmol/L (3.4-5.0)
--- NOTE | 2019-04-18 06:50 | NUR ---
report given to sergey stevenson
[2019-04-18 07:01] LABS: BAND 1 % (0-10); BASOPHIL 1 % (0-2); EOSINOPHIL 4 % (0-4); LYMPHOCYTE 20 % (20.0-51.0); NEUTROPHILS 63 % (42.0-75.2)
[2019-04-18 07:02] LABS: ANISOCYTOSIS 1+; POLYCHROMASIA 1+
[2019-04-18 07:03] LABS: PLATELET ESTIMATE NORMAL (NORMAL)
[2019-04-18 07:04] LABS: PLATELET COUNT 177 K/mm3 (130-400)
[2019-04-18 07:34] VITALS: BP 122/70; PULSE 77; TEMP 97.4
--- NOTE | 2019-04-18 10:43 | NUR ---
Pt awake and resting, no C/O pain at this time, shift assessments complete, left Pt call light in reach, bed in lowest position.
--- NOTE | 2019-04-18 11:19 | NUR ---
Initial visit; Patient appeared to appreciate Sr. Director looking in on him and offering God's blessings.
[2019-04-18 11:25] VITALS: BP 117/61; PULSE 71; TEMP 97.8
--- NOTE | 2019-04-18 14:17 | NUR ---
SW faxed updates to [facility].
[2019-04-18 17:07] VITALS: BP 124/60; PULSE 66; TEMP 97.4
[2019-04-18 19:35] VITALS: BP 114/62; PULSE 71; TEMP 97.6
--- NOTE | 2019-04-18 21:15 | NUR ---
Initial shift assessment done- pleasant, alert, slightly forgetful at times-trying to get out of bed,,states needs to get of bedpan-bedpan removed,had about 250cc urine- bottom is red- cream applied,no open areas. repositioned in bed with assist, o2 at 2L/nc-denies SOB , on Tele
[2019-04-18 23:16] VITALS: BP 102/60; PULSE 69; TEMP 97.7
[2019-04-19 03:27] VITALS: BP 107/60; PULSE 71; TEMP 97.5
--- NOTE | 2019-04-19 05:43 | NUR ---
Had good urine output throughout the night- was able to catch 500cc of urine per urinal and then was also incontinent of urine 4-5 times in addition to that--- pleasant, confused, VSS, Tele on Afib with paced beats, rate controlled. Did not sleep for any long peroids- short naps
[2019-04-19 07:04] LABS: HEMOGLOBIN 10.1 g/dl (13.5-18.0); MEAN CELL VOLUME 87 fl (80.0-100.0); MEAN CORPUSCULAR HEMOGLOBIN 27 pg (27.0-31.0); MEAN CORPUSCULAR HGB CONC 31 g/dl (33.0-37.0); MEAN PLATELET VOLUME 10.9 fl (7.4-10.4); PLATELET COUNT 263 K/mm3 (130-400); RED BLOOD COUNT 3.75 M/mm3 (4.20-5.60); REDCELL DISTRIBUTION WIDTH-CV 17.1 % (11.5-14.5)
[2019-04-19 07:09] LABS: HEMATOCRIT 32.6 % (42.0-52.0)
[2019-04-19 07:18] LABS: CALCIUM 8.8 mg/dL (8.4-10.2); CREATININE, serum 1.79 (0.66-1.25); POTASSIUM 3.4 mmol/L (3.4-5.0)
[2019-04-19 07:36] LABS: LYMPHOCYTE 15 % (20.0-51.0); NEUTROPHILS 75 % (42.0-75.2); PLATELET ESTIMATE NORMAL (NORMAL)
[2019-04-19 07:47] VITALS: BP 113/49; PULSE 76; TEMP 97.7
--- NOTE | 2019-04-19 11:03 | NUR ---
SW attended clinical rounds. Patient and family decided they would like to remain in the hospital until the biopsy results are read. Patient will likely need skilled at [facility] when he is discharged. SW will fax updates to [facility].
[2019-04-19 11:17] VITALS: BP 125/97; PULSE 72; TEMP 98.2
--- NOTE | 2019-04-19 12:55 | NUR ---
Pt resting in bed, family in room with Pt, no C/O pain at this time, shift assessments complete, left Pt call light in reach, bed in lowest position, bed alarm on.
[2019-04-19 15:49] VITALS: BP 104/50; PULSE 61; TEMP 97.5
--- NOTE | 2019-04-19 19:35 | NUR ---
Pt rested in bed during the day, no C/O pain, family was in the room with Pt most of the day, Vs have remained stable, Pt talkative and appropriate during each encounter.
[2019-04-19 19:52] VITALS: BP 103/50; PULSE 69; TEMP 97.3
[2019-04-19 23:33] VITALS: BP 101/51; PULSE 64; TEMP 97.4
--- NOTE | 2019-04-19 23:38 | NUR ---
Patient assessed around 2014. Alert and oriented to self, disoriented to place, time, and situation, but redirects easily, but forgets easily. LS CTA upper lobes, diminished lower lobes. Occasional moist cough, but unable to produce sputum. 2+ edema BLE. Right wrist INT, flushed, and site is without redness, warmth, swelling, and pain. Scabs present to right 3rd and 4th toes, and left 4th toe. Voices no needs or concerns. Resting in bed with eyes closed at this time. Call light is within reach. Bed alarm is on.
[2019-04-20 03:32] VITALS: BP 103/74; PULSE 75; TEMP 97.6
--- NOTE | 2019-04-20 04:55 | NUR ---
Patient has been resting in bed with eyes closed most of the night. Staff have been providing check, change, and repositioning in bed from side to side every 2 hours. Redness continues to bottom. Redness is blanchable. No open areas noted at this time. Incontinent of bladder this shift. Patient complained of level 5 pain to bilateral shoulders at approximately 0450. Given PRN APAP at that time as requested. Patient is on oxygen at 1 L/min via NC. Denies having SOB and dyspnea. Patient has an occasional moist cough, but unable to produce any sputum. Voices no other needs or concerns at this time. Call light is within reach.
[2019-04-20 06:22] LABS: MEAN CELL VOLUME 87 fl (80.0-100.0); MEAN CORPUSCULAR HGB CONC 31 g/dl (33.0-37.0); MEAN PLATELET VOLUME 10.6 fl (7.4-10.4); PLATELET COUNT 317 K/mm3 (130-400); RED BLOOD COUNT 3.52 M/mm3 (4.20-5.60); REDCELL DISTRIBUTION WIDTH-CV 17.2 % (11.5-14.5)
[2019-04-20 06:26] LABS: HEMATOCRIT 30.6 % (42.0-52.0); HEMOGLOBIN 9.6 g/dl (13.5-18.0); MEAN CORPUSCULAR HEMOGLOBIN 27 pg (27.0-31.0)
[2019-04-20 06:54] LABS: CALCIUM 8.6 mg/dL (8.4-10.2); CREATININE, serum 1.71 (0.66-1.25); MAGNESIUM 1.8 mg/dL (1.6-2.3); POTASSIUM 3.5 mmol/L (3.4-5.0)
[2019-04-20 07:58] VITALS: BP 102/53; PULSE 72; TEMP 97.8
[2019-04-20] MEDS ORDERED: NAMENDA5 MG PO (08:48)
[2019-04-20] MEDS ORDERED: BUMEX2 MG PO (08:48)
[2019-04-20] MEDS ORDERED: ALDACTONE 25MG25 M1 PO (08:48)
[2019-04-20 08:52] LABS: BAND 3 % (0-10); EOSINOPHIL 5 % (0-4); LYMPHOCYTE 8 % (20.0-51.0); METAMYELOCYTE 1 % (0-0); NEUTROPHILS 78 % (42.0-75.2); PLATELET ESTIMATE NORMAL (NORMAL)
[2019-04-20] MEDS ORDERED: K-DUR20 MEQ PO (08:54)
--- NOTE | 2019-04-20 09:45 | NUR ---
Patient sitting in bed, family at bedside. Patient denies chest pain, dizziness, N/V, palpitations. Patient on 1L NC. Lung sounds diminished in bases. Heart RRR. Radial pulses strong bilaterally. Patient has wet cough, no phlegm. Patient assisted on to bedpan, had bowel movement, mostly solid. Medications administered per JAN. Patient is discharging back to [place] this afternoon. Per pharmacy, ok to go ahead and give Nulecit prior to discharge. RW INT IV no complications, flushing. Denies other needs at this time. Call light within reach.
--- NOTE | 2019-04-20 10:09 | NUR ---
SW attended clinical rounds. Patient will discharge, today 04/20, back to [facility] for [facility], PT, and OT. SW presented IM to patient and his family. Patient daughter signed, but did not request a copy. [facility] will fax discharge orders. Transportation is arranged for 1pm.
[2019-04-20 11:08] VITALS: BP 102/53; PULSE 72; TEMP 97.8
== END 2019-04-20 13:15 | DRG 291 ==
LOC: COL.ER 12:48 → MEDICAL 15:07
PROVIDERS: Emergency Medicine; Internal Medicine Gastroenterology; Internal Medicine Nephrology; Nurse Practitioner Family; Physician Assistant; ADMIT Hospitalist
PROC: 0DB38ZX Excision of Lower Esophagus, Via Natural or Artificial Opening Endoscopic, Diagnostic (ICD-10-PCS; principal; 2019-04-18 12:30)
DX: I13.0 Hypertensive heart and chronic kidney disease with heart failure and stage 1 through stage 4 chronic kidney disease, or unspecified chronic kidney disease (principal); J96.01 Acute respiratory failure with hypoxia; I50.33 Acute on chronic diastolic (congestive) heart failure; E87.1 Hypo-osmolality and hyponatremia; N17.9 Acute kidney failure, unspecified; N39.0 Urinary tract infection, site not specified; E87.3 Alkalosis; C15.5 Malignant neoplasm of lower third of esophagus; R07.89 Other chest pain; I25.10 Atherosclerotic heart disease of native coronary artery without angina pectoris; E87.6 Hypokalemia; N18.3 Chronic kidney disease, stage 3 (moderate); D64.9 Anemia, unspecified; G47.33 Obstructive sleep apnea (adult) (pediatric); I34.0 Nonrheumatic mitral (valve) insufficiency; R53.81 Other malaise; I48.0 Paroxysmal atrial fibrillation; R13.10 Dysphagia, unspecified; E78.5 Hyperlipidemia, unspecified; K21.9 Gastro-esophageal reflux disease without esophagitis; I48.91 Unspecified atrial fibrillation; G31.84 Mild cognitive impairment of uncertain or unknown etiology; Z79.891 Long term (current) use of opiate analgesic; Z86.14 Personal history of Methicillin resistant Staphylococcus aureus infection; Z95.0 Presence of cardiac pacemaker; Z87.891 Personal history of nicotine dependence; Z88.5 Allergy status to narcotic agent; Z88.1 Allergy status to other antibiotic agents
CPT/HCPCS: OP; 99222-AI; 99232-AI; 99239; A4216; J0696; J1644; J2704; J2916; J3475; J3480; J7040; J7050

== ENCOUNTER → 2019-04-13 | Day surgery (SDC) | payer MEDICARE, BC ==
[~2019-04-13] MED LIST changes: +ALDACTONE 25MG25 M1 PO; +BUMEX2 MG PO; +K-DUR20 MEQ PO
--- NOTE | 2019-04-13 10:45 | NUR ---
Patient brought back to [facility] via wheel chair. Dyspnic, vital signs stable at this time. Alert and oriented x2. Poor historian. Urinated into urinal, dark, cloudy, foul odor. Patient transfered to cart via ashu lift. Once placed into bed patient became very short of breath with audible wheezes. SpO2 89% on room air. Placed on 4L oxygen via NC. Lung sounds wheezing bilaterally, poor air exchange, heart sounds regular, bowel sounds active. Episode of bradycardia noted on monitor. Heart rate returned back to baseline at 65BPM. Nursing staff to notify freight loading supervisor and Dr. Cheney. Call browning within reach, will continue to monitor.
--- NOTE | 2019-04-13 12:25 | NUR ---
Dr. Cheney returned nursing call. Orders given to transfer patient to ER.
--- NOTE | 2019-04-13 12:45 | NUR ---
Patient wheeled over to ER in cart. Placed in RM 4. Report given to RN in charge. All belongings remain with patient.
== END ==
LOC: SDCO 10:28
DX: R05 Cough (principal); R06.02 Shortness of breath; R06.2 Wheezing; Z53.8 Procedure and treatment not carried out for other reasons

== ENCOUNTER → 2019-04-24 | Outpatient (REF) ==
[~2019-04-24] MED LIST changes: +ALBUTEROL IH; +ALDACTONE 25MG25 M1 PO; +ASPIRIN E.C. 8181 MG PO; +BUMEX2 MG PO; +CLARITIN 1010 MG/TAB PO; +ELIQUIS 5MG PO; +EXELON3 MG PO; +FLOMAX 0.40.4 MG/CAP PO; +HYDROCORTISONE30 G3 TP; +K-DUR20 MEQ PO; +LACRI LUBE1 OIN OP; +LOPRESSOR 225 MG/TAB PO; +NITROSTAT0.4 MG/TAB SL; +PRIL40 PO; +ROBITUSSIN COUGH; +SALONPAS; +SENNA-LAX8.6 MG PO
[2019-04-24 09:58] LABS: HEMATOCRIT 33.9 % (42.0-52.0); HEMOGLOBIN 10.7 g/dl (13.5-18.0); MEAN CELL VOLUME 87 fl (80.0-100.0); MEAN CORPUSCULAR HEMOGLOBIN 28 pg (27.0-31.0); MEAN CORPUSCULAR HGB CONC 32 g/dl (33.0-37.0); MEAN PLATELET VOLUME 11.3 fl (7.4-10.4); PLATELET COUNT 198 K/mm3 (130-400); RED BLOOD COUNT 3.89 M/mm3 (4.20-5.60); REDCELL DISTRIBUTION WIDTH-CV 18.8 % (11.5-14.5)
[2019-04-24 10:09] LABS: ALBUMIN 2.9 gm/dL (3.5-5.0); BILIRUBIN,TOTAL 0.4 mg/dL (0.0-1.0); CALCIUM 8.9 mg/dL (8.4-10.2); CREATININE, serum 1.74 (0.66-1.25); MAGNESIUM 1.9 mg/dL (1.6-2.3); POTASSIUM 4.6 mmol/L (3.4-5.0); TOTAL PROTEIN 6.2 gm/dL (6.4-8.2)
[2019-04-24 10:12] LABS: EOSINOPHIL 8 % (0-4); LYMPHOCYTE 18 % (20.0-51.0); NEUTROPHILS 69 % (42.0-75.2); PLATELET ESTIMATE NORMAL (NORMAL)
== END ==
LOC: ZLAB.STJ 09:54
PROVIDERS: Internal Medicine
DX: E61.2 Magnesium deficiency (principal); R79.89 Other specified abnormal findings of blood chemistry; R68.89 Other general symptoms and signs

== ENCOUNTER → 2019-05-01 | Outpatient (CLI) | payer MEDICARE, BC ==
[2019-05-01 16:48] LABS: CALCIUM 8.1 mg/dL (8.4-10.2); CREATININE, serum 2.49 (0.66-1.25); POTASSIUM 4.4 mmol/L (3.4-5.0)
== END ==
LOC: ZLAB.STJ 15:48
PROVIDERS: Nurse Practitioner
DX: R79.89 Other specified abnormal findings of blood chemistry (principal); R19.7 Diarrhea, unspecified

== ENCOUNTER → 2019-05-03 | Outpatient (REF) ==
[2019-05-03 13:03] LABS: CALCIUM 8.1 mg/dL (8.4-10.2); CREATININE, serum 1.84 (0.66-1.25); POTASSIUM 3.7 mmol/L (3.4-5.0)
== END ==
LOC: ZLAB.STJ 12:43
PROVIDERS: Internal Medicine
DX: N18.4 Chronic kidney disease, stage 4 (severe) (principal)

== ENCOUNTER → 2019-05-04 | Outpatient (REF) ==
[2019-05-04 14:56] LABS: CALCIUM 7.9 mg/dL (8.4-10.2); CREATININE, serum 1.52 (0.66-1.25); POTASSIUM 3.6 mmol/L (3.4-5.0)
== END ==
LOC: ZLAB.STJ 14:29
PROVIDERS: Nurse Practitioner
DX: Z01.89 Encounter for other specified special examinations (principal)

== ENCOUNTER → 2019-08-22 | Outpatient (CLI) | payer MEDICARE, BC | LOC: ZCOL.LAB 16:52 | DX: I48.20 Chronic atrial fibrillation, unspecified (principal); I50.33 Acute on chronic diastolic (congestive) heart failure ==

== ENCOUNTER → 2019-08-29 | Outpatient (CLI) | payer MEDICARE, BC ==
[2019-08-29 18:12] LABS: CREATININE, serum 1.4 (0.66-1.25); POTASSIUM 4.2 mmol/L (3.4-5.0)
== END ==
LOC: ZLAB.STJ 17:25 → ZCOL.LAB 17:25
DX: N18.4 Chronic kidney disease, stage 4 (severe) (principal)